=== PATIENT | male | born 1995 | race Caucasian/White ===

== ENCOUNTER 2018-10-15 07:02 | Emergency (ER) | payer OTHER ==
[2018-10-15] MEDS ORDERED: ONDANSETRON 4 MG (ODT) TAB ONE (07:33)
[2018-10-15] MEDS ORDERED: NA CHLORIDE 0.9% 1,000 ML ONE ×2 (07:38→09:18)
[2018-10-15] MEDS ORDERED: PROMETHAZINE 25 MG/ML VIAL ONE (07:38)
[2018-10-15] MEDS ORDERED: PANTOPRAZOLE 40 MG INJ ONE (07:38)
[2018-10-15 07:42] LABS: Absolute Lymphocytes (CBC) 1.3 K/uL (0.7-4.9); Basophils % 0.5 % (0-1.3); Eosinophils % 0.4 % (0-4.4); Hematocrit 49.4 % (39.6-49.0); Lymphocytes % 10.6 % (15.3-44.8); MPV 8.5 fL (7.6-11.3); Monocytes % 4.9 % (3.3-12.3); RBC Red Blood Cell Count 5.48 M/uL (4.33-5.43)
[2018-10-15 08:00] LABS: Albumin 4.8 g/dL (3.4-5.0); Bilirubin Direct 0.2 mg/dL (0-0.2); Bilirubin Total 0.8 mg/dL (0.2-1.0); Potassium 4.1 mmol/L (3.5-5.1); Protein, Total 8.5 g/dL (6.4-8.2)
[2018-10-15] MEDS ORDERED: DICYCLOMINE HCL 10 MG CAP ONE (09:11)
[2018-10-15 09:15] LABS: Barbiturates NEGATIVE (NEGATIVE); Benzodiazepines NEGATIVE (NEGATIVE); Cocaine NEGATIVE (NEGATIVE); METHAMPHETAM NEGATIVE (NEGATIVE); Methadone NEGATIVE (NEGATIVE); Opiates NEGATIVE (NEGATIVE); Phencyclidine NEGATIVE (NEGATIVE); THC Cannibis NEGATIVE (NEGATIVE)
--- NOTE | 2018-10-15 09:23 | RAD REPORT ---
EXAM DESCRIPTION: Seven Griffiths (2 Views)10/15/2018 7:35 am CLINICAL HISTORY: Abdominal pain COMPARISON: 2013 FINDINGS: Lungs are mildly hyperaerated The lungs appear clear of acute infiltrate. The heart is normal size
--- NOTE | 2018-10-15 09:40 | ER ---
Nurse's Notes [facility] Name: Suhail Ramirez Age: 23 yrs Sex: Male : 1995 Arrival Date: 10/15/2018 Time: 07:05 Bed 13 Private MD: Diagnosis: Unspecified abdominal pain;Vomiting;Dehydration Presentation: 10/15 07:10 Presenting complaint: Patient states: i woke up this morning with stomach cramps and tw2 then started throwing up blood. Transition of care: patient was not received from another setting of care. Onset of symptoms was October 15, 2018. Risk Assessment: Do you want to hurt yourself or someone else? Patient reports no desire to harm self or others. Initial Sepsis Screen: Does the patient meet any 2 criteria? No. Patient's initial sepsis screen is negative. Does the patient have a suspected source of infection? No. Patient's initial sepsis screen is negative. Care prior to arrival: None. 07:10 Method Of Arrival: Ambulatory tw2 07:10 Acuity: MERISSA 3 tw2 Triage Assessment: 07:11 General: Appears uncomfortable, Behavior is cooperative, appropriate for age. Pain: tw2 Complains of pain in abdomen. GI: Reports cramping, nausea, bloody emesis. Historical: - Allergies: 07:13 No Known Drug Allergies; tw2 - Home Meds: 07:13 None [Active]; tw2 - PMHx: 07:13 None; tw2 - PSHx: 07:13 None; tw2 - Immunization history:: Adult Immunizations. - Social history:: Smoking status: Patient uses tobacco products, "vape with nicotine" unknown amt. - Ebola Screening: : Patient denies travel to an Ebola-affected area in the 21 days before illness onset. Screenin:14 Abuse screen: Denies threats or abuse. Nutritional screening: No deficits noted. tw2 Tuberculosis screening: Fall Risk None identified. Assessment: 07:10 General: Appears uncomfortable, Behavior is cooperative. Pain: Complains of pain in tw2 abdomen. Neuro: Level of Consciousness is awake, alert, obeys commands, Oriented to person, place, time, situation. Cardiovascular: Heart tones S1 S2 Patient's skin is warm and dry. Respiratory: Airway is patent Respiratory effort is even, unlabored, Respiratory pattern is regular, symmetrical, Breath sounds are clear bilaterally. GI: Abdomen is flat, non-distended, Bowel sounds present X 4 quads. Reports cramping, nausea, bloody emesis. : No signs and/or symptoms were reported regarding the genitourinary system. EENT: No signs and/or symptoms were reported regarding the EENT system. Derm: No signs and/or symptoms reported regarding the dermatologic system. Musculoskeletal: Range of motion: intact in all extremities. 07:10 Reassessment: No changes from previously documented assessment. Patient and/or family tw2 updated on plan of care and expected duration. Pain level reassessed. Patient is alert, oriented x 3, equal unlabored respirations, skin warm/dry/pink. 08:10 Reassessment: No changes from previously documented assessment. Patient and/or family tw2 updated on plan of care and expected duration. Pain level reassessed. Patient is alert, oriented x 3, equal unlabored respirations, skin warm/dry/pink. 09:16 Reassessment: No changes from previously documented assessment. Patient and/or family tw2 updated on plan of care and expected duration. Pain level reassessed. Patient is alert, oriented x 3, equal unlabored respirations, skin warm/dry/pink. 09:55 Reassessment: Patient appears in no apparent distress at this time. Patient and/or tw2 family updated on plan of care and expected duration. Pain level reassessed. Patient is alert, oriented x 3, equal unlabored respirations, skin warm/dry/pink. Patient states feeling better. Patient states symptoms have improved. 13:17 Reassessment: pts mother called, states pt is "still throwing up blood and i had a tw2 phenergan suppository i gave him, i just wonder should i call his pcp and or dr. benedict", i advised that if she thought he needed to return to the ER that she should bring him and also call his pcp. she states "will watch him and see how he does and give them a call". Vital Signs: 07:10 BP 133 / 91; Pulse 61; Resp 18; Temp 97.6(O); Pulse Ox 100% on R/A; Weight 68.04 kg tw2 (R); Height 5 ft. 8 in. (172.72 cm) (R); Pain 9/10; 08:22 BP 118 / 73; Pulse 54; Resp 17; Temp 98.2(O); Pulse Ox 100% on R/A; mh5 09:16 BP 131 / 91; Pulse 59; Resp 17; Pulse Ox 100% on R/A; tw2 07:10 Body Mass Index 22.81 (68.04 kg, 172.72 cm) tw2 Zuhair Coma Score: 07:45 Eye Response: spontaneous(4). Verbal Response: oriented(5). Motor Response: obeys snw commands(6). Total: 15. ED Course: 07:05 Patient arrived in ED. ag3 07:09 Miriam Haley, RN is Primary Nurse. tw2 07:10 Triage completed. tw2 07:10 Arm band placed on left wrist. tw2 07:10 Bed in low position. Call light in reach. Adult w/ patient. Pulse ox on. NIBP on. tw2 07:12 Kera Koenig FNP-C is PHCP. snw 07:13 Dejan Salazar MD is Attending Physician. snw 07:26 Patient moved to radiology via wheelchair. jb2 07:26 X-ray completed. Patient tolerated procedure well. Patient moved back from radiology. jb2 07:30 Chest Pa And Lat (2 Views) XRAY In Process Unspecified. EDMS 07:35 Inserted saline lock: 20 gauge in right antecubital area, using aseptic technique. tw2 Blood collected. 09:02 Urine Drug Screen Sent. tw2 09:55 No provider procedures requiring assistance completed. IV discontinued, intact, tw2 bleeding controlled, No redness/swelling at site. Pressure dressing applied. Administered Medications: 07:17 Drug: Zofran 4 mg Route: PO; tw2 09:18 Follow up: Response: No adverse reaction tw2 07:35 Drug: NS 0.9% 1000 ml Route: IV; Rate: 1 bolus; Site: right antecubital; tw2 08:52 Follow up: Response: No adverse reaction; IV Status: Completed infusion; IV Intake: tw2 1000ml 07:35 Drug: Phenergan 6.25 mg Route: IVP; Site: right antecubital; tw2 09:03 Follow up: Response: No adverse reaction; Nausea is decreased tw2 07:40 Drug: ProTONIX 40 mg Route: IVP; Site: right antecubital; 2 09:03 Follow up: Response: No adverse reaction 08:55 Drug: Bentyl 20 mg Route: PO; 09:17 Follow up: Response: No adverse reaction 09:02 Drug: NS 0.9% 1000 ml Route: IV; Rate: 1 bolus; Site: right antecubital; tw2 09:56 Follow up: Response: No adverse reaction; IV Status: Completed infusion; IV Intake: tw2 1000ml Intake: 08:52 IV: 1000ml; Total: 1000ml. 09:56 IV: 1000ml; Total: 2000ml. Output: 09:00 Urine: 150ml (Voided); Total: 150ml. Outcome: 09:39 Discharge ordered by . snw 09:55 Discharged to home ambulatory, with family. 09:55 Condition: stable 09:55 Discharge instructions given to patient, family, Instructed on discharge instructions, follow up and referral plans. no drinking with medication, no driving heavy equipment, medication usage, Demonstrated understanding of instructions, follow-up care, medications, Prescriptions given X 2. 09:56 Patient left the ED. Signatures: Dispatcher [employer] EDMS Kera Koenig, SORIN SUPERVISOR YARD-Jl Mcbride Tara, RN RN tw2 Digna Sandy5 Kenzie Smallwood 3
--- NOTE | 2018-10-15 09:40 | EDPHYS ---
Physician Documentation [facility] Name: Suhail Ramirez Age: 23 yrs Sex: Male : 1995 Arrival Date: 10/15/2018 Time: 07:05 Bed 13 Private MD: ED Physician Dejan Salazar HPI: 10/15 07:46 This 23 yrs old Male presents to ER via Ambulatory with complaints of snw Vomiting. 07:46 The patient presents to the emergency department with nausea, vomiting. Onset: The snw symptoms/episode began/occurred suddenly, last night. Possible causes: unknown. The symptoms are aggravated by nothing. The symptoms are alleviated by nothing. Associated signs and symptoms: Pertinent positives: abdominal pain. Severity of symptoms: At their worst the symptoms were severe. The patient has not experienced similar symptoms in the past. It is unknown whether or not the patient has recently seen a physician. hx of synthetic use 2 years ago. Historical: - Allergies: 07:13 No Known Drug Allergies; tw2 - Home Meds: 07:13 None [Active]; tw2 - PMHx: 07:13 None; tw2 - PSHx: 07:13 None; tw2 - Immunization history:: Adult Immunizations. - Social history:: Smoking status: Patient uses tobacco products, "vape with nicotine" unknown amt. - Ebola Screening: : Patient denies travel to an Ebola-affected area in the 21 days before illness onset. ROS: 07:46 Constitutional: Negative for fever, chills, and weight loss, Eyes: Negative for injury, snw pain, redness, and discharge, ENT: Negative for injury, pain, and discharge, Neck: Negative for injury, pain, and swelling, Cardiovascular: Negative for chest pain, palpitations, and edema, Respiratory: Negative for shortness of breath, cough, wheezing, and pleuritic chest pain, Back: Negative for injury and pain, : Negative for injury, bleeding, discharge, and swelling, MS/Extremity: Negative for injury and deformity, Skin: Negative for injury, rash, and discoloration, Neuro: Negative for headache, weakness, numbness, tingling, and seizure, Psych: Negative for depression, anxiety, suicide ideation, homicidal ideation, and hallucinations. 07:46 Abdomen/GI: Positive for abdominal pain, nausea, vomiting. Exam: 07:45 Constitutional: This is a well developed, well nourished patient who is awake, alert, snw and in no acute distress. Head/Face: Normocephalic, atraumatic. Eyes: Pupils equal round and reactive to light, extra-ocular motions intact. Lids and lashes normal. Conjunctiva and sclera are non-icteric and not injected. Cornea within normal limits. Periorbital areas with no swelling, redness, or edema. ENT: Nares patent. No nasal discharge, no septal abnormalities noted. Tympanic membranes are normal and external auditory canals are clear. Oropharynx with no redness, swelling, or masses, exudates, or evidence of obstruction, uvula midline. Mucous membranes moist. Neck: Trachea midline, no thyromegaly or masses palpated, and no cervical lymphadenopathy. Supple, full range of motion without nuchal rigidity, or vertebral point tenderness. No Meningismus. Chest/axilla: Normal chest wall appearance and motion. Nontender with no deformity. No lesions are appreciated. Cardiovascular: Regular rate and rhythm with a normal S1 and S2. No gallops, murmurs, or rubs. Normal PMI, no JVD. No pulse deficits. Respiratory: Lungs have equal breath sounds bilaterally, clear to auscultation and percussion. No rales, rhonchi or wheezes noted. No increased work of breathing, no retractions or nasal flaring. Back: No spinal tenderness. No costovertebral tenderness. Full range of motion. Skin: Warm, dry with normal turgor. Normal color with no rashes, no lesions, and no evidence of cellulitis. MS/ Extremity: Pulses equal, no cyanosis. Neurovascular intact. Full, normal range of motion. Neuro: Awake and alert, GCS 15, oriented to person, place, time, and situation. Cranial nerves II-XII grossly intact. Motor strength 5/5 in all extremities. Sensory grossly intact. Cerebellar exam normal. Normal gait. 07:45 Abdomen/GI: Inspection: abdomen appears normal, Bowel sounds: diminished, in all quadrants, Palpation: moderate abdominal tenderness, in the right upper quadrant and left upper quadrant. 07:45 Psych: Behavior/mood is pleasant, anxious. Vital Signs: 07:10 BP 133 / 91; Pulse 61; Resp 18; Temp 97.6(O); Pulse Ox 100% on R/A; Weight 68.04 kg tw2 (R); Height 5 ft. 8 in. (172.72 cm) (R); Pain 9/10; 08:22 BP 118 / 73; Pulse 54; Resp 17; Temp 98.2(O); Pulse Ox 100% on R/A; mh5 09:16 BP 131 / 91; Pulse 59; Resp 17; Pulse Ox 100% on R/A; tw2 07:10 Body Mass Index 22.81 (68.04 kg, 172.72 cm) tw2 Zuhair Coma Score: 07:45 Eye Response: spontaneous(4). Verbal Response: oriented(5). Motor Response: obeys snw commands(6). Total: 15. MDM: 07:13 Patient medically screened. snw 09:46 Data reviewed: vital signs, nurses notes. Data interpreted: Pulse oximetry: on room air snw is 100 %. Interpretation: normal. Counseling: I had a detailed discussion with the patient and/or guardian regarding: the historical points, exam findings, and any diagnostic results supporting the discharge/admit diagnosis, the presence of at least one elevated blood pressure reading (>120/80) during this emergency department visit, lab results, radiology results, the need for outpatient follow up, to return to the emergency department if symptoms worsen or persist or if there are any questions or concerns that arise at home, smoking cessation. Special discussion: Based on the patient's Hx, exam, and Dx evaluation, there is no indication for emergent surgery or inpatient Tx. It is understood by the patient/guardian that if the Sx's persist or worsen they need to return immediately for re-evaluation. Based on the history and exam findings, there is no indication for further emergent testing or inpatient evaluation. I discussed with the patient/guardian the need to see the federal mediation commissioner for further evaluation of the symptoms. I discussed with the patient/guardian the need to see the primary care provider for further evaluation of the symptoms. 10/15 07:18 Order name: Basic Metabolic Panel snw 10/15 07:18 Order name: CBC with Diff; Complete Time: 08:15 snw 10/15 07:18 Order name: Hepatic Function; Complete Time: 08:15 snw 10/15 07:18 Order name: Lipase; Complete Time: 08:15 snw 10/15 07:20 Order name: Basic Metabolic Panel; Complete Time: 08:15 EDMS 10/15 07:40 Order name: Urine Drug Screen; Complete Time: 09:27 snw 10/15 07:15 Order name: Chest Pa And Lat (2 Views) XRAY; Complete Time: 09:27 snw 10/15 09:37 Order name: Urine Dipstick--Ancillary (enter results) bd 10/15 07:18 Order name: IV Saline Lock; Complete Time: 07:41 snw 10/15 07:18 Order name: Labs collected and sent; Complete Time: 07:41 snw 10/15 07:40 Order name: Urine Dipstick-Ancillary (obtain specimen); Complete Time: 09:02 snw Administered Medications: 07:17 Drug: Zofran 4 mg Route: PO; tw2 09:18 Follow up: Response: No adverse reaction tw2 07:35 Drug: NS 0.9% 1000 ml Route: IV; Rate: 1 bolus; Site: right antecubital; tw2 08:52 Follow up: Response: No adverse reaction; IV Status: Completed infusion; IV Intake: tw2 1000ml 07:35 Drug: Phenergan 6.25 mg Route: IVP; Site: right antecubital; tw2 09:03 Follow up: Response: No adverse reaction; Nausea is decreased tw2 07:40 Drug: ProTONIX 40 mg Route: IVP; Site: right antecubital; tw2 09:03 Follow up: Response: No adverse reaction tw2 08:55 Drug: Bentyl 20 mg Route: PO; tw2 09:17 Follow up: Response: No adverse reaction tw2 09:02 Drug: NS 0.9% 1000 ml Route: IV; Rate: 1 bolus; Site: right antecubital; tw2 09:56 Follow up: Response: No adverse reaction; IV Status: Completed infusion; IV Intake: tw2 1000ml Disposition: 10/16 04:28 Co-signature as Attending Physician, Dejan Salazar MD I agree with the assessment and tw4 plan of care. Disposition: 10/15/18 09:39 Discharged to Home. Impression: Unspecified abdominal pain, Vomiting, Dehydration. - Condition is Stable. - Discharge Instructions: Abdominal Pain, Adult, Dehydration, Adult, Fat and Cholesterol Restricted Diet, Nausea and Vomiting, Adult, Upper Endoscopy, Rehydration, Adult. - Prescriptions for Bentyl 20 mg Oral Tablet - take 1 tablet by ORAL route every 6 hours As needed; 20 tablet. promethazine 25 mg Oral Tablet - take 1 tablet by ORAL route every 6 hours As needed; 20 tablet. - Medication Reconciliation Form, Thank You Letter, Antibiotic Education, Prescription Opioid Use, Work release form form. - Follow up: Private Physician; When: 2 - 3 days; Reason: Recheck today's complaints, Continuance of care, Re-evaluation by your physician. Follow up: Emergency Department; When: As needed; Reason: Worsening of condition. Signatures: Dispatcher [employer] EDMS Kera Koenig, DENNISE-C H[employer]ICULTURAL FARM MANAGER-Csnw Miriam Haley RN RN tw2 Dejan Salazar MD MD tw4 Corrections: (The following items were deleted from the chart) 10/15 09:56 09:39 10/15/2018 09:39 Discharged to Home. Impression: Unspecified abdominal pain; tw2 Vomiting; Dehydration. Condition is Stable. Forms are Medication Reconciliation Form, Thank You Letter, Antibiotic Education, Prescription Opioid Use. Follow up: Private Physician; When: 2 - 3 days; Reason: Recheck today's complaints, Continuance of care, Re-evaluation by your physician. Follow up: Emergency Department; When: As needed; Reason: Worsening of condition. snw
[2018-10-15 10:02] LABS: Urine Blood NEGATIVE (NEG); Urine Glucose NEGATIVE (NEG); Urine Protein 2+ (NEG); Urine Specific Gravity 1.015 (1.005-1.030); Urine pH >8.5 (5.0-7.0)
[2018-10-15 10:29] VITALS: O2SAT 100
[2018-10-15 10:31] VITALS: TEMP 98.2
[2018-10-15 10:33] VITALS: BP 131/91
== END 2018-10-15 09:56 | disposition home or self-care (01) ==
LOC: ER 07:02
DX: R11.2 Nausea with vomiting, unspecified (principal); R10.9 Unspecified abdominal pain; E86.0 Dehydration; Z72.0 Tobacco use
CPT/HCPCS: 36415; 71046; 80048; 80076; 80307; 81003; 83690; 85025; 96361; 96374; 96375; 99284; C9113; J2550; J7030

== ENCOUNTER 2024-07-29 13:03 | Emergency (ER) | payer BC, OTHER ==
[2024-07-29] MEDS ORDERED: HYDROCODONE/APAP 5/325 MG TAB ONE (14:28)
--- NOTE | 2024-07-29 14:54 | RAD REPORT ---
EXAMINATION: CT HEAD WITHOUT CONTRAST CT CERVICAL SPINE WITHOUT CONTRAST CLINICAL INDICATION: Head and neck injury status post fall. Head and neck pain TECHNIQUE: Axial CT images from the skull base to the vertex without intravenous contrast. Axial CT i mages through the cervical spine were obtained without intravenous contrast. Sagittal and coronal reformatted images were created from the data set. Coronal and sagittal reformatted images were creat ed from the data set. One or more of the following dose reduction techniques were used: Automated exposure control, adjustment of the mA and/or kV according to patient size, and/or iterative reconstr uction. Unless otherwise specified, incidental findings do not require dedicated imaging follow-up. [id number]. Comparison: none FINDINGS: An intracranial bleed is not seen. Ventricles are normal in caliber. No significant hypodensity within the brain No extra-axial fluid collection. No fluid within the sinuses/mastoids No fracture or dislocation is seen involving the cervical spine. IMPRESSION: No acute intracranial abnormality noted A cervical fracture is not seen. If the patient continues to have symptoms to suggest acute MODELER/spinal pathology then MRI would be rec ommended Refer to the CT face report for facial findings.
--- NOTE | 2024-07-29 15:03 | RAD REPORT ---
EXAMINATION: CT MAXILLOFACIAL WITHOUT CONTRAST CLINICAL INDICATION: Facial pain. Status post fall TECHNIQUE: Axial images were obtained through the facial bones and orbits without intravenous contras t. Sagittal and coronal reconstructions were created from the data. One or more of the following dose reduction techniques were used: Automated exposure control, adjustment of the mA and/or kV accor ding to patient size, and/or iterative reconstruction. Unless otherwise specified, incidental findings do not require dedicated imaging follow-up. COMPARISON: No prior exam. FINDINGS: Comminuted depressed nasal bone fractures. Marked deviation nasal septum towards the left. Nondisplaced fracture anterolateral wall right maxillary sinus.. Nondisplaced fracture anterior wall right maxillary sinus. Nondisplaced fracture anterior medial wall left maxillary sinus. Fluid is present within maxillary sinuses. IMPRESSION: Comminuted, depressed multiple nasal bone fractures. Nondisplaced fractures wall right and left maxillary sinus
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
[2024-07-29 19:29] VITALS: TEMP 98.9; O2SAT 98
[2024-07-29 19:34] VITALS: BP 141/86
== END 2024-07-29 16:09 | disposition home or self-care (01) ==
LOC: ER 13:03
DX: S02.2XXA Fracture of nasal bones, initial encounter for closed fracture (principal); W05.1XXA Fall from non-moving nonmotorized scooter, initial encounter
CPT/HCPCS: 70450; 70486; 72125; 76377; 99284

== ENCOUNTER → 2024-08-09 | Day surgery (SDC) | payer BC ==
[~2024-08-09] MED LIST: FENTANYL CITR 100 MCG/2 ML ONE; LIDOCAINE 1% MPF 5 ML VIAL ONE; LIDOCAINE HCL/EPINEPHRINE 20 ML MDV ONE; MIDAZOLAM HCL 2 MG/2 ML INJ ONE; Mastisol Adhesive Liq ONE; ONDANSETRON 4 MG/2 ML VIAL ONE; OXYMETAZOLINE HCL 0.05% 30ML NAS ONE; dexAMETHasone 10 MG/ML VIAL ONE; propofoL 200 MG/20 ML VIAL IV ONE
[2024-08-09] MEDS: Ringers Lactate 1,000 ML IV ONE (09:04)
--- NOTE | 2024-08-09 10:29 | P.OP ---
Mechanical Manufacturing Engineer: NONE,NONE Preoperative diagnosis: Displaced nasal fracture Postoperative diagnosis: Same Primary procedure: Closed reduction nasal fracture with manipulation and stabilization Anesthesia: General Via laryngeal mask airway Estimated blood loss: Less than 5 mL Specimen: None Findings: Displaced nasal fracture Operative Technique: The patient was brought to the operating room placed under general anesthesia via laryngeal mask airway. The external nose was examined and palpated. The displaced nasal fractures were reduced with external pressure on the nose. A Gay elevator was placed within the nasal vault and used to elevate fragments anteriorly. Additionally the Gay elevator was used to gently reduce the septal fracture by applying pressure on the left septum towards midline. Afrin-soaked pledgets were placed within the bilateral nasal cavity and nasal vault for several minutes to aid in hemostasis. After removal the area was slightly oozy on the left side. A PosiSep nasal dressing was placed within the left nasal vault and soaked with saline to aid in hemostasis. Mastisol, Steri-Strips and a thermoplastic splint were applied to the external nose for stabilization and protection during the early postoperative period. The patient was then returned to care of anesthesia for awakening and extubation and transferred to the recovery room. All pledget counts were confirmed correct by the operating room staff. Complications: None Implants: PosiSep dissolvable sinus dressing to left nasal cavity Fluids & blood products: See anesthesia record Transferred to: Recovery Room Condition: Good
[2024-08-09] MEDS: MORPHINE 2 MG/ML SYR ONE (10:31)
[2024-08-09] MEDS: MORPHINE 4 MG/ML SYR ONE ×2 (10:36→10:50)
[2024-08-09] MEDS: HYDRALAZINE HCL 20 MG/ML VIAL ONE (11:01)
[2024-08-09] MEDS: HYDROCODONE/APAP 10/325 TAB ONE (11:50)
[2024-08-09 13:05] VITALS: TEMP 98.2
[2024-08-09 13:08] VITALS: BP 153/82; O2SAT 100
== END ==
LOC: OR 07:54
PROVIDERS: ATTEND Otolaryngology
PROC: 0NSBXZZ Reposition Nasal Bone, External Approach (ICD-10-PCS; principal; 2024-08-09 09:15)
DX: S02.2XXD Fracture of nasal bones, subsequent encounter for fracture with routine healing (principal)
CPT/HCPCS: 21337; J0360; J2704; J2003; J2250; J3010; J1100; J2270; J2405; J7120